=== PATIENT | female | born 1975 | race Asian ===

== ENCOUNTER 2021-04-29 11:42 | Emergency (ER) | payer MEDICAID ==
[~2021-04-29] VITALS: Ht 149.9 cm; Wt 63.6 kg
[2021-04-29 12:34] VITALS: BP 152/100
== END 2021-04-29 14:34 | disposition left against medical advice (07) ==
LOC: EMS 11:42
DX: Z20.822 Contact with and (suspected) exposure to COVID-19 (principal); Z53.21 Procedure and treatment not carried out due to patient leaving prior to being seen by health care provider